=== PATIENT | female | born 1950 | race Caucasian/White ===

== ENCOUNTER → 2023-12-20 12:04 | Outpatient (REF) | payer MEDICARE, BC, SELFPAY ==
[2023-12-20 14:36] LABS: ALT (SGPT) 32 U/L (0-35); AST (SGOT) 43 U/L (14-36); Albumin 4.5 g/dl (3.5-5.0); Alkaline Phosphatase 50 U/L (38-126); Blood Urea Nitrogen 13 mg/dl (7-17); Calcium 9.7 mg/dl (8.4-10.2); Carbon Dioxide 30 mmol/L (22-30); Chloride 96 mmol/L (98-107); Glucose 247 mg/dl (70-99); HDL Cholesterol 56 mg/dl; LDL Cholesterol, Calculated 96 mg/dl; Potassium 4.5 mmol/L (3.5-5.1); Sodium 139 mmol/L (135-145); Total Bilirubin 0.9 mg/dl (0.2-1.3); Total Cholesterol 191 mg/dl (50-199); Total Protein 6.6 g/dl (6.3-8.2); Triglyceride 196 mg/dl (10-149); Very Low Density Lipoprotein 39 mg/dl (0-30); eGFR > 60.00
[2023-12-20 15:04] LABS: TSH 1.49 uIU/ml (0.47-4.68)
[2023-12-20 15:27] LABS: Microalbumin, Random Urine 2.1 mg/dl (0.6-1.7); Microalbumin/creatinine Ratio 12.7 mg/g
[2023-12-21 09:27] LABS: Glycohemoglobin (HgbA1c) 10.1 % (4.0-5.6)
== END ==
LOC: REG 12:04
PROVIDERS: ATTENDING PHYSICIAN Physician Assistant; FAMILY PHYSICIAN Family Medicine
DX: E11.9 Type 2 diabetes mellitus without complications (principal)
CPT/HCPCS: 36415; 80053; 80061; 82043; 82570; 83036; 84443